=== PATIENT | male | born 1985 | race Caucasian/White ===

== ENCOUNTER → 2017-05-04 | Outpatient (CLI) | payer BC, OTHER, SELFPAY ==
--- NOTE | 2017-05-04 12:15 | REP ---
MR LUMBAR SPINE WITHOUT CONTRAST: HISTORY: Back pain. Decreased signal intensity on T2-weighted images was present in the L3-4 through L5-S1 intervertebral discs. The discs are decreased in height. These findings are consistent with disc degeneration. There is no disc bulge or herniation at the L1-2 and L2-3 levels. The nerves exit the neural foramina without compression. A diffuse disc bulge and small central disc protrusion are present at the L3-4 level. There is minimal compression of the thecal sac. There is hypertrophy of the posterior articulating facets. The L3 nerves exit the neural foramina without compression. A diffuse disc bulge and small central disc protrusion are present at the L4-5 level. There is hypertrophy of the ligamenta flava and posterior articulating facets. These findings produce minimal central canal stenosis. The L4 nerves exit the neural foramina without compression. A diffuse disc bulge is present at the L5-S1 level. There is minimal compression of the thecal sac. There is hypertrophy of the posterior articulating facets. There are 3 mm of grade 1 spondylolisthesis of L5 on S1. There is compression of the left L5 nerve in the neural foramen. The right L5 nerve exits the neural foramen without compression. The conus medullaris is normal in appearance terminating at the level of the T12-L1 intervertebral disc. Normal signal intensity is present in the lumbar vertebral bodies. IMPRESSION: 1. Diffuse disc bulge and small central disc protrusion at the L3-4 level with minimal thecal sac compression. 2. Minimal central canal stenosis at the L4-5 level secondary to disc bulge, disc protrusion, ligamentous and facet hypertrophy. 3. Diffuse disc bulge at the L5-S1 level with minimal thecal sac compression. There is grade 1 spondylolisthesis of L5 on S1. There is compression of the left L5 nerve in the neural foramen. Signed by Maximilian Saul MD 05/04/2017 12:21 P
== END ==
LOC: M RAD 10:31
PROVIDERS: ATTEND Physician Assistant
DX: M51.36 Other intervertebral disc degeneration, lumbar region (principal); M51.37 Other intervertebral disc degeneration, lumbosacral region

== ENCOUNTER → 2021-05-28 | Outpatient (CLI) | payer OTHER | LOC: M PAIN 08:30 | PROVIDERS: ATTEND Anesthesiology | DX: M51.16 Intervertebral disc disorders with radiculopathy, lumbar region (principal); Z87.891 Personal history of nicotine dependence; Z79.899 Other long term (current) drug therapy ==

== ENCOUNTER → 2021-08-19 | Outpatient (CLI) | payer OTHER | LOC: M PAIN 13:45 | PROVIDERS: ATTEND Anesthesiology | DX: M47.816 Spondylosis without myelopathy or radiculopathy, lumbar region (principal); E55.9 Vitamin D deficiency, unspecified; E78.5 Hyperlipidemia, unspecified; Z87.891 Personal history of nicotine dependence ==

== ENCOUNTER 2024-05-07 13:16 | Emergency (ER) | payer OTHER ==
[~2024-05-07] VITALS: Ht 198.1 cm; Wt 107.8 kg
[2024-05-07 13:17] VITALS: BP 137/81; TEMP 98.4; O2SAT 95
[2024-05-07] MEDS: LIDOCAINE 1% MDV 20ML VIAL SC ONE (15:10)
[2024-05-07] MEDS ORDERED: CEPH500C PO (15:44)
[2024-05-07] MEDS: BOOSTRIX VACCINE (TETANUS/DIPHTH/ACEL. PERTUSSIS) 0.5ML SYR IM.IMMUN ONE (15:47)
[2024-05-07] MEDS: CEPHALEXIN 500 MG CAP PO ONE (15:47)
== END 2024-05-07 15:59 | disposition home or self-care (01) ==
LOC: M ED 13:16
DX: S61.211A Laceration without foreign body of left index finger without damage to nail, initial encounter (principal); Y92.9 Unspecified place or not applicable; Y93.9 Activity, unspecified; Y99.0 Civilian activity done for income or pay; Z79.2 Long term (current) use of antibiotics; Z23 Encounter for immunization